=== PATIENT | female | born 1950 | race Caucasian/White ===

== ENCOUNTER 2022-06-04 08:22 | Outpatient (CLI) | payer BC, SELFPAY | END 2022-06-04 08:23 | disposition home or self-care (01) | PROVIDERS: PCP Family Medicine; Visit Provider Family Medicine | DX: M54.16 Radiculopathy, lumbar region (principal); M51.36 Other intervertebral disc degeneration, lumbar region | CPT/HCPCS: 62323; J0702; Q9966 ==

== ENCOUNTER 2022-07-23 09:05 | Outpatient (CLI) | payer BC, SELFPAY | END 2022-07-23 09:06 | disposition home or self-care (01) | LOC: INJ CL 09:08 | PROVIDERS: PCP Family Medicine; Visit Provider Family Medicine | DX: M54.16 Radiculopathy, lumbar region (principal); M51.36 Other intervertebral disc degeneration, lumbar region | CPT/HCPCS: 62323; J0702; Q9966 ==

== ENCOUNTER 2022-12-31 07:52 | Outpatient (CLI) | payer BC, SELFPAY | END 2022-12-31 07:53 | disposition home or self-care (01) | LOC: INJ CL 07:53 | PROVIDERS: PCP Family Medicine; Visit Provider Family Medicine | DX: M54.16 Radiculopathy, lumbar region (principal) | CPT/HCPCS: 64483; J1100; Q9966 ==